=== PATIENT | male | born 1950 | race Caucasian/White ===

== ENCOUNTER 2021-04-10 23:01 | Emergency (ER) | payer MEDICARE, MEDICAID, SELFPAY ==
[2021-04-10 23:02] VITALS: BP 125/87; PULSE 91; RESP 16; TEMP 35.9; O2SAT 96; BMI 31.0
--- NOTE | 2021-04-10 23:16 | CT_ITS ---
STUDY: CT BRAIN WITHOUT CONTRAST REASON FOR EXAM: Male, 71 years old patient with closed head injury after fall. RADIATION DOSAGE (If Supplied By Facility): CTDIvol = ( 44.99 ) mGy, DLP = ( 779.24 ) mGycm TECHNIQUE: Transaxial CT imaging of the brain was performed without administration of intravenous contrast material. Multiplanar reformations are submitted for interpretation. Individualized dose optimization techniques were used for this CT. COMPARISON: No relevant priors. FINDINGS: There are punctate calcifications within the scalp. Normal calvarium. There is mild cerebral atrophy with widening of the extra-axial spaces and ventricular dilatation. There are areas of decreased attenuation within the white matter tracts of the supratentorial brain, consistent with microvascular disease changes. There appear to be punctate parenchymal calcifications in the brain. Normal basal ganglia and thalami. Normal brainstem. Normal cerebellum. There is no intracranial hemorrhage. There is mild atherosclerotic calcification of the intracranial arteries. Normal visualized paranasal sinuses. CT/Brain/Head without Contrast IMPRESSION: 1. Chronic involutional changes of the brain. 2. No CT evidence of acute intracranial hemorrhage. Electronically Signed: Tatyana Fang MD at 0:14 EST , Service support ,
--- NOTE | 2021-04-10 23:17 | EX.ED.DYSGE1 ---
HPI History of Present Illness Chief Complaint: Fall Informant: patient and EMS Onset/Context/Timing Onset: Today Narrative Narrative: Patient reportedly had an unwitnessed fall in the restroom at the local [facility]. Patient states he rhombus collapsing but does not member why. He does not report any injury. He does admit to drinking tonight. Patient becomes tearful speaking about losing his partner of 18 years just a few weeks ago. Patient sister did arrive a short time later. She states the patient was belligerent and yelling that he just wanted to blow his brains out. He reports he does have access to guns at home. [facility] Medical History unable to obtain no medical history Home Medications etodolac 300 mg PO TIDCM #30 capsule 07/19/15 [Rx Last Taken Unknown] Allergy/AdvReac Type Severity Reaction Status Date / Time No Known Allergies Allergy Verified 04/10/21 23:08 Social History Smoking Status: Current every day smoker tobacco type: cigarettes ROS ROS ED Constitutional Constitutional ED: Denies chills or fever(s) Eyes Eyes: Denies change in vision ENT ENT ED: Denies rhinorrhea or sore throat Cardiovascular Cardiovascular: Denies chest pain or palpitations Respiratory/Chest Respiratory/Chest: Denies cough or dyspnea Gastrointestinal Gastrointestinal: Denies abdominal pain or vomiting Musculoskeletal Musculoskeletal: Denies back pain or neck pain Integumentary Denies rash Psychiatric Psychiatric: Reports depression Allergic/Immunologic Allergic/Immunologic ED: Denies urticaria EXAM Physical Exam Const Vital Signs: 04/10/21 23:02 04/10/21 23:09 04/11/21 01:10 Temperature 96.7 F L Temperature Source Temporal Pulse Rate 91 77 Respiratory Rate 16 16 Respiratory Effort Normal Non-Labored Respiratory Depth Normal Respiratory Pattern Normal Blood Pressure 125/87 H Blood Pressure Mean 99 Pulse Ox 96 Oxygen Delivery Method Room Air Room Air 04/11/21 03:30 04/11/21 06:01 Temperature Temperature Source Pulse Rate 78 Respiratory Rate 16 18 Respiratory Effort Respiratory Depth Respiratory Pattern Blood Pressure 132/78 H Blood Pressure Mean 96 Pulse Ox 97 Oxygen Delivery Method Room Air Positive well nourished and well developed General Appearance ED: well developed HEENT Reports moist mucous membranes Eyes PERRL and EOMs intact bilaterally Neck supple Neck Narrative: No C-spine tenderness. Chest Wall inspection of chest normal and palpation of chest normal Resp normal respiratory effort and clear to auscultation bilaterally Cardio regular rate and regular rhythm GI non-tender Palpation: soft Extremity normal to inspection Neuro oriented x3 Neuro Narrative: No focal neuro deficits. Sensorium / Orientation: alert Psych Mood & Affect: depressed and tearful Skin no rashes or lesions noted MDM MDM MDM Narrative Medical decision making narrative: Lab work, urine tox screen, EtOH level obtained. Head CT ordered. Lab Data Attestation: I reviewed the patient's lab results. Labs: Laboratory Results - last 24 hr 04/10/21 04/10/21 04/10/21 23:27 23:27 23:27 WBC 6.1 RBC 4.27 L Hgb 12.3 L Hct 37.6 L MCV 88.1 MCH 28.8 MCHC 32.7 RDW Std Deviation 43.2 RDW Coeff of Diaz 13.4 Plt Count 359 MPV 9.0 Immature Gran % (Auto) 1.000 H Neut % (Auto) 47.9 Lymph % (Auto) 36.6 [place] % (Auto) 11.2 H Eos % (Auto) 2.6 Baso % (Auto) 0.7 Absolute Neuts (auto) 2.9 Absolute Lymphs (auto) 2.22 Nucleated RBC % 0 Sodium 141 Potassium 3.5 Chloride 109 H Carbon Dioxide 23.0 Anion Gap 9 BUN 7 Creatinine 0.99 Estim Creat Clear Calc 59.53 Est GFR (MDRD) Af Amer 96 Est GFR (MDRD) Non-Af 79 BUN/Creatinine Ratio 7.1 L Glucose 112 H Calcium 8.3 L Total Bilirubin 0.30 Direct Bilirubin 0.10 AST 29 ALT 63 H Alkaline Phosphatase 94 Total Protein 7.2 Albumin 3.1 L Globulin 4.1 Urine Opiates Screen Urine Methadone Screen Ur Barbiturates Screen Ur Phencyclidine Scrn Ur Amphetamines Screen U Methamphetamin-MDMA U Benzodiazepines Scrn Urine Cocaine Screen U Cannabinoids Screen Ur Drug Screen Comment Ethyl Alcohol 317.0 H* 04/11/21 04/11/21 04:08 05:33 WBC RBC Hgb Hct MCV MCH MCHC RDW Std Deviation RDW Coeff of Diaz Plt Count MPV Immature Gran % (Auto) Neut % (Auto) Lymph % (Auto) [place] % (Auto) Eos % (Auto) Baso % (Auto) Absolute Neuts (auto) Absolute Lymphs (auto) Nucleated RBC % Sodium Potassium Chloride Carbon Dioxide Anion Gap BUN Creatinine Estim Creat Clear Calc Est GFR (MDRD) Af Amer Est GFR (MDRD) Non-Af BUN/Creatinine Ratio Glucose Calcium Total Bilirubin Direct Bilirubin AST ALT Alkaline Phosphatase Total Protein Albumin Globulin Urine Opiates Screen NEGATIVE Urine Methadone Screen NEGATIVE Ur Barbiturates Screen NEGATIVE Ur Phencyclidine Scrn NEGATIVE Ur Amphetamines Screen NEGATIVE U Methamphetamin-MDMA NEGATIVE U Benzodiazepines Scrn NEGATIVE Urine Cocaine Screen NEGATIVE U Cannabinoids Screen NEGATIVE Ur Drug Screen Comment Ethyl Alcohol 166.0 Radiography Diagnostic Testing: Clinical Impression(s) from Imaging Studies Brain CT 04/10/21 23:16 IMPRESSION: 1. Chronic involutional changes of the brain. 2. No CT evidence of acute intracranial hemorrhage. Electronically Signed: Tatyana Fang MD at 0:14 EST , Service support , Treatment and Re-Evaluation Comments:: CT head reveals no acute changes. Lab work unremarkable other than alcohol level of 317. This was repeated 6 hours later. He is dropping approximate 25/h. Alcohol will be redrawn at 8 AM. He will then require evaluation by crisis. I will asked the crisis speak with the patient's sister to obtain more history as well as address the reported guns that are in the patient's home that he has access to. Discharge Plan Triage Chief Complaint: Fall ED Provider: Sridevi Ball Dx/Rx/DC Orders Clinical Impression: Depression, Alcohol intoxication Instructions: ED Depression, ED Alcohol Intoxication Prescriptions: No Action etodolac 300 MG capsule 300 mg PO TIDCM Qty: 30 RF: 0 Primary Care Provider: Care Physician,No Primary Referrals: Counseling,Center [GROUP OF PHYSICIANS] - As soon as possible Care Physician,No Primary [Primary Care Provider] - Disposition Disposition: Home, Self Care
--- NOTE | 2021-04-10 23:47 | ED.RN ---
Unable to collect urine specimen. patient had missed urinal and peed on the floor. urine has been cleaned off the floor. patient also took off cardiac monitors. notified.
[2021-04-10 23:53] LABS: AST(SGOT) 29 U/L (15-37); Alanine Aminotransfer ALT/SGPT 63 U/L (16-61); Albumin, Serum 3.1 g/dL (3.2-5.0); Alkaline Phosphatase 94 U/L (45-117); Anion Gap 9 (5-15); BUN 7 mg/dL (7-18); BUN/Creat Ratio 7.1 RATIO (10-20); Calcium,Total 8.3 mg/dL (8.5-10.1); Chloride 109 mmol/L (98-107); Creatinine, Serum 0.99 mg/dL (0.70-1.30); EST Glomerular Filtration Rate 79 mL/min (>60); Est Glom Filt Rate - Afr Amer 96 mL/min (>60); Estimated Creatinine Clearance 59.53 ml/min; Globulin 4.1 g/dL (2.2-4.2); Glucose 112 mg/dL (74-106); Potassium 3.5 mmol/L (3.5-5.1); Protein, Total 7.2 g/dL (6.4-8.2); Sodium Level 141 mmol/L (136-145)
[2021-04-10 23:56] LABS: Absolute Lymphocyte Count 2.22 X10^3/uL (0.83-4.51); Absolute Neutrophil Count 2.9 X10^3/uL (2.0-7.7); Basophil# 0.04 X10^3/uL; Basophil% 0.7 % (0-1); Eosinophil# 0.16 X10^3/uL; Eosinophils% 2.6 % (0-5); Hematocrit 37.6 % (40-54); Hemoglobin 12.3 g/dL (13.0-16.5); Lymphocyte # 2.22 X10^3/ul (0.83-4.51); Lymphocyte % 36.6 % (19-41); Mean Corp Hgb Conc 32.7 g/dL (32-36); Mean Corpuscular Hgb 28.8 pg (27.0-32.0); Mean Corpuscular Volume 88.1 fL (80-94); Monocyte# 0.68 X10^3/uL; Monocyte% 11.2 % (0-10); NRBC Flagged by Analyzer 0 % (0-5); Neutrophil # 2.91 X10^3/uL (2.7-7.7); Neutrophil % 47.9 % (47-70); Platelet Count 359 K/mm3 (150-450); RBC Distribution Width CV 13.4 % (11.6-14.6); RBC Distribution Width SD 43.2 fl (35.1-43.9); Red Blood Count 4.27 M/mm3 (4.6-6.2); White Blood Count 6.1 K/mm3 (4.4-11.0)
[2021-04-11] VITALS (7 sets, daily range): BP systolic 132–137; BP diastolic 78–90; PULSE 77–89; RESP 15–18; O2SAT 96–98
[2021-04-11] MEDS: Ziprasidone IM 20 MG/ML VIAL 10 MG IM (00:13)
--- NOTE | 2021-04-11 00:13 | ED.RN ---
Patient has peed all over floor again. patient has been advised to ring for nurse and urinal will be given.
--- NOTE | 2021-04-11 00:48 | ED.RN ---
patient given ice water.
[2021-04-11 04:37] LABS: Amphetamine Urine VISTA NEGATIVE (<1000 ng/mL); Barbiturate Urine VISTA NEGATIVE (< 200 ng/mL); Benzodiazepine Urine VISTA NEGATIVE (< 200 ng/mL); Cocaine Urine VISTA NEGATIVE (< 300 ng/mL); Ecstacy Urine VISTA NEGATIVE (< 500 ng/mL); Methadone Urine VISTA NEGATIVE (< 300 ng/mL); PCP Urine VISTA NEGATIVE (< 25 ng/mL); THC Urine VISTA NEGATIVE (< 50 ng/mL); Vista UDS pH Range 5
--- NOTE | 2021-04-11 11:01 | NURSING ---
CALLED CRISIS. WILL BE YOU
--- NOTE | 2021-04-11 11:28 | NURSING ---
FAXED CHART TO [facility]
--- NOTE | 2021-04-11 12:14 | ED.RN ---
crisis called again at this time d/t long call back time about patient's evaluation.
--- NOTE | 2021-04-11 12:26 | ED.RN ---
Pt informed of delay of care. pt states he is leaving at 1300 wether he has spoken to crisis or not. no active pink slipped. pt states he will walk to his sister house across from the hospital and she would drive him home. reese godoy, rn [id number]
== END 2021-04-11 13:13 | disposition home or self-care (01) ==
PROVIDERS: Emergency Medicine; Emergency Provider Emergency Medicine
DX: F32.A Depression, unspecified (principal); F10.129 Alcohol abuse with intoxication, unspecified; F17.210 Nicotine dependence, cigarettes, uncomplicated
CPT/HCPCS: 36415; 70450; 80048; 80076; 80307; 82077; 85025; 96372; 99285

== ENCOUNTER → 2022-01-21 | Outpatient (CLI) | payer OTHER, SELFPAY ==
--- NOTE | 2022-01-21 07:37 | CT_ITS ---
STUDY: CT CHEST WITHOUT CONTRAST REASON FOR EXAM: Male, 71 years old. HX OF TAA RADIATION DOSAGE (If Supplied By Facility): CTDIvol = ( 14.39 ) mGy, DLP = ( 485.29 ) mGycm TECHNIQUE: Transaxial imaging was performed without the administration of intravenous contrast material. Individualized dose optimization techniques were used for this CT. COMPARISON: No relevant priors. FINDINGS: CHEST The lungs are normal. There is no demonstrated pleural abnormality. There are calcifications of the coronary arteries. There are multiple small lymph nodes within the mediastinum, which are normal in size and morphology most compatible with reactive lymph hyperplasia. Normal hilar regions. Normal unenhanced pulmonary arteries. There is dilatation of the ascending thoracic aorta with a transverse dimension of 4.51 cm. There are mild degenerative changes of the thoracic spine. There is no demonstrated abnormality of the visualized upper abdomen. CT/Chest without Contrast IMPRESSION: Dilatation of the ascending thoracic aorta with a transverse dimension of 4.51 cm. Electronically Signed: Edwin Birmingham MD at 14:22 EDT ,
== END | disposition home or self-care (01) ==
PROVIDERS: PCP Family Medicine
DX: I71.20 Thoracic aortic aneurysm, without rupture, unspecified (principal)
CPT/HCPCS: 71250

== ENCOUNTER → 2023-08-06 | Outpatient (CLI) | payer OTHER, SELFPAY ==
--- NOTE | 2023-08-06 09:30 | CT_ITS ---
INDICATION: TAA SURVEILLANCE EXAMINATION: CT CHEST WITHOUT CONTRAST - CT Chest W/O Contrast Injection TECHNIQUE: Helically acquired images were obtained of the chest. A radiation dose optimization technique was used for this scan. IV Contrast dosage and agent: None. RADIATION DOSAGE (If Supplied By Facility): CTDIvol = ( 11.11 ) mGy, DLP = ( 416.28 ) mGycm COMPARISON: FINDINGS: LUNGS, PLEURA AND LARGE AIRWAYS: 5 mm right upper lobe nodular density. No pleural effusion or thickening. No pneumothorax. THYROID: No thyroid lesions. HEART AND PERICARDIUM: Heart size is normal. No pericardial effusion. CORONARY ARTERIES: Mild coronary artery calcifications are present VESSELS: Dilated ascending aorta measuring 4.3 cm. MEDIASTINUM AND KEN: No mediastinal or hilar adenopathy. Esophagus is unremarkable. No hiatal hernia. UPPER ABDOMEN: No acute pathology. BONES: No suspicious lytic or blastic abnormality. CT/Chest without Contrast IMPRESSION: Right upper lobe nodular density may be related to a focal scar. Dilated ascending aorta. Electronically Signed: Roni Dupont DO at 23:51 EDT ,
== END | disposition home or self-care (01) ==
LOC: CT 09:27
PROVIDERS: PCP Internal Medicine; Referring Provider Internal Medicine; Visit Provider Internal Medicine
DX: I71.20 Thoracic aortic aneurysm, without rupture, unspecified (principal)
CPT/HCPCS: 71250